=== PATIENT | female | born 2000 | race Caucasian/White ===

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

== ENCOUNTER 2020-11-17 19:59 | Emergency (ER) | payer OTHER ==
[~2020-11-17 19:59] MED LIST changes: +ATROVENT HFA12.9 GM INH; +BENTYL 20MG TAB20 MG PO; +FIORICET PO; +PREDNISONE20 MG PO; +PRENATAL VITAM1 EAC3 PO; +PROVENTIL HFA6.7 GM INH; +REGLAN10 MG PO; +ROBITUSSIN DM UD5 ML PO; +TESSALON PERLE100 MG PO
[2020-11-17] MEDS ORDERED: AUGMENTIN 875-1 EACH PO (20:35)
[2020-11-17] MEDS ORDERED: NAPROSYN500 MG PO (20:35)
== END 2020-11-17 20:53 | disposition home or self-care (01) ==
LOC: ER1 19:59
DX: K02.9 Dental caries, unspecified (principal); F17.290 Nicotine dependence, other tobacco product, uncomplicated
CPT/HCPCS: 99282

== ENCOUNTER 2020-11-21 12:01 | Emergency (ER) | payer OTHER ==
[~2020-11-21 12:01] MED LIST changes: +AUGMENTIN 875-1 EACH PO; +NAPROSYN500 MG PO
== END 2020-11-21 14:15 | disposition home or self-care (01) ==
LOC: ER1 12:01
DX: O99.891 Other specified diseases and conditions complicating pregnancy (principal); R11.0 Nausea; Z3A.01 Less than 8 weeks gestation of pregnancy
CPT/HCPCS: 81001; 82272; 84703; 99283

== ENCOUNTER 2020-11-23 10:50 | Emergency (ER) | payer OTHER ==
[2020-11-23] MEDS ORDERED: AMOXICILLIN875 MG PO (11:57)
== END 2020-11-23 12:06 | disposition home or self-care (01) ==
LOC: ER1 10:50
DX: J02.0 Streptococcal pharyngitis (principal); F17.290 Nicotine dependence, other tobacco product, uncomplicated; Z79.899 Other long term (current) drug therapy
CPT/HCPCS: 87081; 87880; 99283

== ENCOUNTER 2020-11-24 12:28 | Emergency (ER) | payer OTHER ==
[~2020-11-24 12:28] MED LIST changes: +AMOXICILLIN875 MG PO
[2020-11-24 13:23] LABS: HEMOGLOBIN 13.7 gm/dl (12.3-15.3); RED BLOOD COUNT 4.74 M/UL (4.00-5.10); WHITE BLOOD COUNT 18.4 K/UL (4.5-11.0)
[2020-11-24 13:48] LABS: BUN/CREATININE RATIO 8 (0-10)
== END 2020-11-24 20:10 | disposition short-term general hospital (02) ==
LOC: ER1 12:28
PROVIDERS: Physician Assistant Medical
DX: O99.891 Other specified diseases and conditions complicating pregnancy (principal); J36 Peritonsillar abscess; D72.829 Elevated white blood cell count, unspecified; Z3A.01 Less than 8 weeks gestation of pregnancy
CPT/HCPCS: 70491; 80053; 81001; 83605; 84703; 85025; 87040; 96365; 99284; J2405; J2543; J7030; Q9967

== ENCOUNTER 2021-02-03 14:11 | Emergency (ER) | payer OTHER ==
[2021-02-03] MEDS ORDERED: OMNICEF 300 MG300 MG PO (17:37)
== END 2021-02-03 17:55 | disposition home or self-care (01) ==
LOC: ER1 14:11
DX: O99.712 Diseases of the skin and subcutaneous tissue complicating pregnancy, second trimester (principal); L03.031 Cellulitis of right toe; O99.332 Smoking (tobacco) complicating pregnancy, second trimester; F17.290 Nicotine dependence, other tobacco product, uncomplicated; Z23 Encounter for immunization
CPT/HCPCS: 73620; 90471; 90715; 99283

== ENCOUNTER 2021-03-03 16:28 | Emergency (ER) | payer OTHER ==
[~2021-03-03 16:28] MED LIST changes: +OMNICEF 300 MG300 MG PO
[2021-03-03 17:07] LABS: HEMOGLOBIN 13.1 gm/dl (12.3-15.3); RED BLOOD COUNT 4.4 M/UL (4.00-5.10); WHITE BLOOD COUNT 7.1 K/UL (4.5-11.0)
[2021-03-03 17:33] LABS: BUN/CREATININE RATIO 9 (0-10)
[2021-03-03] MEDS ORDERED: DELSYM30 MG/5 ML PO (19:32)
[2021-03-03] MEDS ORDERED: OMNICEF 300 MG300 MG PO (19:32)
== END 2021-03-03 19:57 | disposition home or self-care (01) ==
LOC: ER1 16:28
PROVIDERS: Physician Assistant Medical
DX: O98.512 Other viral diseases complicating pregnancy, second trimester (principal); U07.1 COVID-19; O23.42 Unspecified infection of urinary tract in pregnancy, second trimester; O99.332 Smoking (tobacco) complicating pregnancy, second trimester; F17.290 Nicotine dependence, other tobacco product, uncomplicated; Z3A.18 18 weeks gestation of pregnancy
CPT/HCPCS: 80053; 81001; 82550; 82553; 83874; 84484; 85025; 99284; U0002

== ENCOUNTER 2021-07-25 07:26 | Outpatient (CLI) | payer BC, OTHER ==
[~2021-07-25 07:26] MED LIST changes: +DELSYM30 MG/5 ML PO
== END 2021-07-25 09:37 | disposition other institution (70) ==
LOC: GENOP 07:26
DX: O42.92 Full-term premature rupture of membranes, unspecified as to length of time between rupture and onset of labor (principal); O35.8XX0 Maternal care for other (suspected) fetal abnormality and damage, not applicable or unspecified; O99.213 Obesity complicating pregnancy, third trimester; E66.9 Obesity, unspecified; Z20.822 Contact with and (suspected) exposure to COVID-19; Z3A.38 38 weeks gestation of pregnancy
CPT/HCPCS: 96360; 96361; J7121; U0002

== ENCOUNTER 2022-03-02 21:07 | Emergency (ER) | payer BC, OTHER ==
[2022-03-02] MEDS ORDERED: PYRIDIUM200 MG PO (22:21)
[2022-03-02] MEDS ORDERED: OMNICEF 300 MG300 MG PO (22:21)
== END 2022-03-02 22:40 | disposition home or self-care (01) ==
LOC: ER1 21:07
DX: N39.0 Urinary tract infection, site not specified (principal); R40.2410 Glasgow coma scale score 13-15, unspecified time; F17.290 Nicotine dependence, other tobacco product, uncomplicated
CPT/HCPCS: 81001; 84703; 87077; 87086; 87186; 99283

== ENCOUNTER 2022-03-10 19:13 | Emergency (ER) | payer BC, OTHER ==
[~2022-03-10 19:13] MED LIST changes: +PYRIDIUM200 MG PO
== END 2022-03-10 19:50 | disposition home or self-care (01) ==
LOC: ER1 19:13
DX: R05.9 Cough, unspecified (principal); R42 Dizziness and giddiness; Z20.822 Contact with and (suspected) exposure to COVID-19; J45.909 Unspecified asthma, uncomplicated
CPT/HCPCS: 99284; U0002

== ENCOUNTER 2022-03-12 17:57 | Emergency (ER) | payer BC, OTHER | END 2022-03-12 19:05 | disposition left against medical advice (07) | LOC: ER1 17:57 | DX: Z53.21 Procedure and treatment not carried out due to patient leaving prior to being seen by health care provider (principal) ==